=== PATIENT | male | born 1950 | race African-American/Black ===

== ENCOUNTER 2020-04-23 19:03 | Emergency (ER) | payer OTHER, MEDICARE, BC ==
[2020-04-23 20:26] LABS: ABSOLUTE EOSINOPHILS # (AUTO) 0.1 10^3/uL (0.0-0.6); ABSOLUTE LYMPHOCYTES (AUTO) 1.2 10^3/uL (0.5-4.7); ABSOLUTE MONOCYTES (AUTO) 0.6 10^3/uL (0.1-1.4); ABSOLUTE NEUT (AUTO) 2.1 10^3/uL (1.7-8.2); BASOPHILS % (AUTO) 0.5 % (0-2); EOSINOPHILS % (AUTO) 2.9 % (0-6); HEMATOCRIT 37.3 % (37.9-51.0); HEMOGLOBIN 12.5 g/dL (13.5-17.0); LYMPHOCYTES % (AUTO) 30.5 % (13-45); MEAN CORPUSCULAR HEMOGLOBIN 28.8 pg (27.0-33.4); MEAN CORPUSCULAR HGB CONC 33.6 g/dL (32.0-36.0); MEAN CORPUSCULAR VOLUME 86 fl (80-97); MONOCYTES % (AUTO) 14.3 % (3-13); PLATELET COUNT 230 10^3/uL (150-450); RED BLOOD COUNT 4.35 10^6/uL (4.35-5.55); RED CELL DISTRIBUTION WIDTH 13.1 % (11.5-14.0); SEGMENTED NEUTROPHILS % (AUTO) 51.8 % (42-78); TOTAL CELLS COUNTED % (AUTO) 100 %; WHITE BLOOD COUNT 4.1 10^3/uL (4.0-10.5)
--- NOTE | 2020-04-23 20:29 | ER Document Report ---
ED Medical Screen (RME) - General Chief Complaint: Chest Pain Stated Complaint: CHEST PAIN Time Seen by Provider: 04/23/20 20:27 Primary Care Provider: RIO SOTO MD [Primary Care Provider] - Follow up as needed Mode of Arrival: Medic Information source: Patient Notes: 70-year-old male presented to ED for complaint of chest pain shortness of breath. He states he has been short of breath for well and his primary care has been working up to find out why he is short of breath. He states this morning early he had chest pain that lasted about 45 minutes was very short of breath and he went on about his day and then about 430 this evening he started having chest pain again he states it was not getting any better so about 630 he called the ambulance and they came to the house gave him 3 sprays of nitro and 4 baby aspirin and is not having any pain at all at this time. He states he has already had a EKG and blood work drawn but has not had a chest x-ray yet in the emergency room. He is alert oriented respirations regular nonlabored lungs are clear to auscultation at this time. He will be seen by another provider. I have greeted and performed a rapid initial assessment of this patient. A comprehensive ED assessment and evaluation of the patient, analysis of test results and completion of medical decision making process will be conducted by a n additional ED providers. - Related Data Allergies/Adverse Reactions: No Known Drug Allergies Allergy (Verified 06/11/12 09:07) Past Medical History - Social History Frequency of alcohol use: None Drug Abuse: None - Past Medical History Cardiac Medical History: Denies: Hx Coronary Artery Disease, Hx Heart Attack, Hx Hypertension Pulmonary Medical History: Denies: Hx Asthma, Hx Bronchitis, Hx COPD, Hx Pneumonia Neurological Medical History: Denies: Hx Cerebrovascular Accident, Hx Seizures Musculoskeltal Medical History: Denies Hx Arthritis Past Surgical History: Denies: Hx Pacemaker - Immunizations Hx Diphtheria, Pertussis, Tetanus Vaccination: No - Unsure Physical Exam - Vital signs Vitals: Resp 17 04/23/20 19:25 Course - Vital Signs Vital signs: Temp Pulse Resp BP Pulse Ox 98.4 F 18 142/88 H 98 04/23/20 19:30 04/23/20 19:28 04/23/20 19:28 04/23/20 19:28 - Laboratory Result Diagrams: 04/23/20 19:30 04/23/20 19:30 Doctor's Discharge - Discharge Referrals: RIO SOTO MD [Primary Care Provider] - Follow up as needed
[2020-04-23 20:35] LABS: ALBUMIN 3.9 g/dL (3.5-5.0); ALKALINE PHOSPHATASE 64 U/L (38-126); ANION GAP 10 (5-19); ASPARTATE AMINO TRANSFERASE 25 U/L (17-59); BILIRUBIN,DIRECT 0.1 mg/dL (0.0-0.4); BILIRUBIN,TOTAL 0.3 mg/dL (0.2-1.3); BLOOD UREA NITROGEN 12 mg/dL (7-20); CALCIUM 9.3 mg/dL (8.4-10.2); CARBON DIOXIDE 24 mmol/L (22-30); CHLORIDE 106 mmol/L (98-107); CREATINE KINASE 160 U/L (55-170); GLUCOSE 98 mg/dL (75-110); POTASSIUM 4.2 mmol/L (3.6-5.0); TOTAL PROTEIN 7.4 g/dL (6.3-8.2)
[2020-04-23 20:46] LABS: CREATINE KINASE MB 4.89 ng/mL (<4.55); TROPONIN I 0.447 ng/mL
--- NOTE | 2020-04-23 20:48 | ER Document Report ---
ED General - General Chief Complaint: Chest Pain Stated Complaint: CHEST PAIN Time Seen by Provider: 04/23/20 20:27 Primary Care Provider: RIO SOTO MD [Primary Care Provider] - Follow up as needed Mode of Arrival: Medic Information source: Patient Notes: ED Medical Screen (Maximino briceno) - General Chief Complaint: Chest Pain Stated Complaint: CHEST PAIN Time Seen by Provider: 04/23/20 20:27 Primary Care Provider: RIO SOTO MD [Primary Care Provider] - Follow up as needed Mode of Arrival: Medic Information source: Patient Notes: 70-year-old male presented to ED for complaint of chest pain shortness of breath. He states he has been short of breath for well and his primary care has been working up to find out why he is short of breath. He states this morning early he had chest pain that lasted about 45 minutes was very short of breath and he went on about his day and then about 430 this evening he started having chest pain again he states it was not getting any better so about 630 he called the ambulance and they came to the house gave him 3 sprays of nitro and 4 baby aspirin and is not having any pain at all at this time. He states he has already had a EKG and blood work drawn but has not had a chest x-ray yet in the emergency room. He is alert oriented respirations regular nonlabored lungs are clear to auscultation at this time. He will be seen by another provider. MY NOTES 70 starting year old black male arrives with his and EMS after having chest pain early this morning before breakfast around 0600. This lasted for around 45 minutes with blood pressure 167/107. It later decreased to 147/87. The chest pain resolved enough for him to go to religious. Later tonight around 1800 hrs. he began to have the same left-sided chest pain with referral to his left bicep. He also got some sweatiness shortness of breath and some nausea. This patient was given 324 aspirin and 2 sublingual nitro by EMS and was placed on 12 L of oxygen. His blood pressure was 125/87 after he was given nitro and initially was 156/119. Blood sugar was 138. This was through EMS unit #8. They picked him up around 1844 . [place] [facility] [place]. 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 Patient at this time has no chest pain but earlier tonight for 45 minutes he had 7 out of 10 chest pain. He says he takes fish oil , sea torrez garlic tablets cod liver oil and fiber pill as well as some other medications which he apparently was written for in November and December and appears to be noncompliant with these. Patient reports from his walking since earlier the year he has lost 3 belt sizes to a size 42. Patient denies hemoptysis or coronavirus. He says he started having some wheezing earlier today. Chest x-ray shows no problems according to radiologist. I suspect on my exam that he has some interstitial pattern. Patient reports he had an echo and stress test done by the [place] this year. He did get a flu shot on his right hip and a Pneumovax on his left hip on Saturday and by Saturday was having his heart symptoms progressed. The patient's labs are positive for t roponin and CPK at this time. He has 71 bpm with occasional PVC Currently at 2259 patient has 135/66 blood pressure 59 bpm 99% saturation on 2 L and 22 breaths/min TRAVEL OUTSIDE OF THE [place] IN LAST 30 DAYS: No - HPI Onset: This evening Onset/Duration: Sudden, Persistent Quality of pain: Achy Severity: Moderate Pain Level: 2 Associated symptoms: Sweating Exacerbated by: Deep breathing Similar symptoms previously: Yes Recently seen / treated by doctor: No - Related Data Allergies/Adverse Reactions: No Known Drug Allergies Allergy (Verified 06/11/12 09:07) Past Medical History - General Information source: Patient - Social History Smoking Status: Unknown if Ever Smoked Cigarette use (# per day): No Chew tobacco use (# tins/day): No Smoking Education Provided: No Frequency of alcohol use: None Drug Abuse: None Lives with: Family Family History: Reviewed & Not Pertinent Patient has suicidal ideation: No Patient has homicidal ideation: No - Past Medical History Cardiac Medical History: Denies: Hx Coronary Artery Disease, Hx Heart Attack, Hx Hypertension Pulmonary Medical History: Denies: Hx Asthma, Hx Bronchitis, Hx COPD, Hx Pneumonia Neurological Medical History: Denies: Hx Cerebrovascular Accident, Hx Seizures Musculoskeletal Medical History: Denies Hx Arthritis Past Surgical History: Denies: Hx Pacemaker - Immunizations Hx Diphtheria, Pertussis, Tetanus Vaccination: No - Unsure Review of Systems - Review of Systems Constitutional: No symptoms reported EENT: No symptoms reported Cardiovascular: See HPI, Chest pain Respiratory: No symptoms reported Gastrointestinal: No symptoms reported Genitourinary: No symptoms reported Male Genitourinary: No symptoms reported Musculoskeletal: No symptoms reported Skin: No symptoms reported Hematologic/Lymphatic: No symptoms reported Neurological/Psychological: No symptoms reported -: Yes All other systems reviewed and negative Physical Exam - Vital signs Vitals: Resp 17 04/23/20 19:25 Interpretation: Normal - General General appearance: Appears well, Alert - HEENT Head: Normocephalic, Atraumatic Eyes: Normal Pupils: PERRL - Respiratory Respiratory status: No respiratory distress Chest status: Nontender Breath sounds: Normal Chest palpation: Normal - Cardiovascular Rhythm: Regular Heart sounds: Normal auscultation Murmur: No - Abdominal Inspection: Normal Distension: No distension Bowel sounds: Normal Tenderness: Nontender Organomegaly: No organomegaly - Rectal Prostate: Other - deferred - Genitourinary Scrotum: Other - deferred - Back Back: Normal, Nontender - Extremities General upper extremity: Normal inspection, Nontender, Normal color, Normal ROM, Normal temperature General lower extremity: Normal inspection, Nontender, Normal color, Normal ROM, Normal temperature, Normal weight bearing. No: Po's sign - Neurological Neuro grossly intact: Yes Cognition: Normal Orientation: AAOx4 [place] Coma Scale Eye Opening: Spontaneous [place] Coma Scale Verbal: Oriented [place] Coma Scale Motor: Obeys Commands [place] Coma Scale Total: 15 Speech: Normal Motor strength normal: LUE, RUE, LLE, RLE Sensory: Normal - Psychological Associated symptoms: Normal affect, Normal mood - Skin Skin Temperature: Warm Skin Moisture: Dry Skin Color: Normal Course - Vital Signs Vital signs: Temp Pulse Resp BP Pulse Ox 97.8 F 21 H 143/97 H 99 04/24/20 01:35 EDT 04/24/20 01:43 EST 04/24/20 01:43 EST 04/24/20 01:43 EST - Laboratory Result Diagrams: 04/23/20 19:30 04/23/20 19:30 Laboratory results interpreted by me: 04/23/20 04/23/20 04/23/20 19:30 19:30 19:30 Hgb 12.[address] [place] % (Auto) 14.3 H Creatinine 1.41 H Est GFR (MDRD) Non-Af 50 L CK-MB (CK-2) 4.89 H - Diagnostic Test Radiology reviewed: Reports reviewed - EKG Interpretation by Me EKG shows normal: Sinus rhythm Rate: Normal Rhythm: NSR - HR 71 bpm with PVCs and nonspecific T wave abnormality and this EKG was read by myself and I agree no STEMI at this time Additional EKG results interpreted by me: 04/24/20 01:29 EDT Second EKG was done and evaluated at 0 130. Patient does have T wave inversion diffusely and compares with first EKG. Patient has 63 bpm with no PVCs and I read this chart. Critical Care Note - Critical Care Note Comments: I discussed this case with Dr. Rafi Fuentes @ 2245 and he advised that possibly flu vaccination may have triggered some response but also agrees with transfer to [facility]. I spoke with Cyn at transfer center about this patient's case at 2249. At [address] Harris who advised cardiology and I spoke with Dr. Lombardi watch repair person shortly after around 2305 and he advised transfer to [facility]. Discharge - Discharge Clinical Impression: Chest pain at rest, Elevated troponin, Non-STEMI (non-ST elevated myocardial infarction) Condition: Stable Disposition: [facility] Additional Instructions: Transfer this patient to [facility] by ground Referrals: RIO SOTO MD [Primary Care Provider] - Follow up as needed
--- NOTE | 2020-04-23 21:32 | RADIOLOGY REPORT (SQ) ---
EXAM DESCRIPTION: Chest radiograph, two views CLINICAL HISTORY: Chest pain COMPARISON: None FINDINGS: Cardiac silhouette is within normal limits. EKG leads project over the chest. There is no focal parenchymal or pleural disease. There is no acute osseous process visualized. IMPRESSION: No evidence of acute cardiopulmonary disease.
[2020-04-23] MEDS ORDERED: ASPIRIN 81 MG TABLET, CHEWABLE PO ONE (22:55)
--- NOTE | 2020-04-24 01:47 | ER Document Report ---
Doctor's Note Notes: 04/24/20 01:44 EST This MD was informed that transport had arrived to take patient to [facility]. This MD went to the patient's bedside to check on the patient prior to his transfer. Patient is awake and alert, pleasant. Patient denies chest pain. Patient has a nontoxic appearance. Patient appears stable for transfer.
[2020-04-24 01:51] VITALS: BP 143/97
--- NOTE | 2020-04-24 08:37 | EKG REPORT ---
SEVERITY:- ABNORMAL ECG - SINUS RHYTHM ABNORMAL T, CONSIDER ISCHEMIA, DIFFUSE LEADS : Confirmed by: Dayron Cannon MD 24-Apr-2020 08:36:33
--- NOTE | 2020-04-24 14:18 | EKG REPORT ---
SEVERITY:- ABNORMAL ECG - SINUS RHYTHM VENTRICULAR PREMATURE COMPLEX NONSPECIFIC T ABNORMALITIES, DIFFUSE LEADS : Confirmed by: Dayron Cannon MD 24-Apr-2020 14:17:41
== END 2020-04-24 02:10 | disposition short-term general hospital (02) ==
LOC: ER 19:03
DX: I21.4 Non-ST elevation (NSTEMI) myocardial infarction (principal); R07.9 Chest pain, unspecified; R11.0 Nausea; Z79.899 Other long term (current) drug therapy
CPT/HCPCS: 36415; 71046; 80053; 82550; 82553; 84484; 85025; 93005; 93010; 99285